=== PATIENT | female | born 1970 | race Asian ===

== ENCOUNTER 2022-09-11 06:07 | Day surgery (SDC) | payer OTHER ==
[2022-09-10 10:14] LABS: HCG,QUAL RESULT NEGATIVE (NEGATIVE)
[~2022-09-11] VITALS: Ht 165 cm; Wt 62.6 kg
[2022-09-11 06:43] LABS: BILIRUBIN,URINE NEGATIVE (NEGATIVE); BLOOD, URINE 1+ (NEGATIVE); COLOR,URINE YELLOW (YELLOW); GLUCOSE,URINE NEGATIVE (NEGATIVE); KETONES,URINE NEGATIVE (NEGATIVE); LEUKOCYTE ESTERASE ,URINE TRACE (NEGATIVE); NITRITE, URINE NEGATIVE (NEGATIVE); PROTEIN URINE NEGATIVE (NEGATIVE); UROBILINOGEN,URINE 0.2 (0.2-1.0)
[2022-09-11 06:47] LABS: BASOPHILS % (AUTO) 0.8 % (0.0-2.0); CLARITY/URINE SLIGHTLY CLOUDY (CLEAR); EOSINOPHILS # (AUTO) 0.1 K/uL (0.0-0.4); EOSINOPHILS % (AUTO) 2.5 % (0.0-4.0); HEMATOCRIT 39.6 % (36-48); HEMOGLOBIN 13.4 g/dL (12.0-16.0); LYMPHOCYTES # (AUTO) 1.6 K/uL (1.0-5.5); LYMPHOCYTES % (AUTO) 32.3 % (20.5-51.5); MEAN CORPUSCULAR HEMOGLOBIN 31 pg (27-31); MEAN CORPUSCULAR HGB CONC 34 % (32-36); MEAN CORPUSCULAR VOLUME 92 fL (79.0-98.0); MONOCYTES # (AUTO) 0.3 K/uL (0.0-1.0); MONOCYTES % (AUTO) 7.2 % (1.7-9.3); NEUTROPHILS # (AUTO) 2.8 K/uL (1.8-7.7); NEUTROPHILS % (AUTO) 57.2 % (40.0-70.0); PLATELET COUNT (AUTO) 219 K/uL (130-430); RED BLOOD CELL COUNT(AUTO) 4.31 MIL/uL (4.2-6.2); RED CELL DISTRIBUTION WIDTH 13.4 % (9.0-15.0); WHITE BLOOD COUNT (AUTO) 4.8 K/uL (4.8-10.8)
[2022-09-11 06:49] LABS: HCG,QUAL RESULT NEGATIVE (NEGATIVE)
[2022-09-11 06:52] LABS: BACTERIA,URINE FEW /HPF (None Seen)
[2022-09-11] MEDS ORDERED: KETOROLAC TROMETHAMINE 30 MG VIAL ONE (07:32)
[2022-09-11] MEDS ORDERED: WATER FOR IRRIGATION,STERILE 1,000 ML IRRIG.SOLN IR ONE (07:32)
[2022-09-11] MEDS ORDERED: SEVOFLURANE 15 MIN GAS INH ONE (07:32)
[2022-09-11] MEDS ORDERED: ONDANSETRON HCL 4 MG/2 ML VIAL ONE (07:32)
[2022-09-11] MEDS ORDERED: NS IRRIG SOLN 1000 ML IR ONE (07:32)
[2022-09-11] MEDS ORDERED: PROPOFOL 200MG/ 20ML VIAL (DIPRIVAN) IV ONE (07:32)
[2022-09-11 07:33] LABS: ALBUMIN 3.9 g/dL (3.4-4.8); CALCIUM 8.3 mg/dL (8.4-11.0); CREATININE 0.71 mg/dL (0.55-1.30); TOTAL BILIRUBIN 0.4 mg/dL (0.0-1.0)
[2022-09-11 08:06] LABS: PROTHROMBIN TIME 9.9 SECS (9.5-12.5)
[2022-09-11] MEDS ORDERED: METOCLOPRAMIDE HCL 10 MG/2 ML VIAL IVP PRN (08:15)
[2022-09-11] MEDS ORDERED: ACETAMINOPHEN 500 MG TABLET PO ONE (08:15)
[2022-09-11] MEDS ORDERED: KETOROLAC TROMETHAMINE 30 MG VIAL IVP PRN (08:15)
[2022-09-11] MEDS ORDERED: HYDROmorphone 1 MG/ML INJ. CARTRIDGE IVP PRN (08:15)
[2022-09-11] MEDS ORDERED: ONDANSETRON HCL 4 MG/2 ML VIAL IVP PRN ×2 (08:15→08:30)
[2022-09-11] MEDS ORDERED: IBUPROFEN 600 MG TABLET PO PRN (08:30)
[2022-09-11 15:35] VITALS: BP_SYST 132
== END 2022-09-11 09:50 | disposition home or self-care (01) ==
LOC: SDS 06:07 → SMU 06:07 → SDS 09:50
PROVIDERS: ATTEND Obstetrics & Gynecology Gynecology
DX: N92.1 Excessive and frequent menstruation with irregular cycle (principal); I10 Essential (primary) hypertension; G43.909 Migraine, unspecified, not intractable, without status migrainosus; M79.7 Fibromyalgia; E03.9 Hypothyroidism, unspecified
CPT/HCPCS: 87081 ×2; 71045; 84703 ×2; 58120; 80053; 81000; 85025; 85610; 85730; 86886; 86900; 86901; 87086; 36415; 93005; J1885; J2405; J2704; J7120